=== PATIENT | female | born 1955 | race Caucasian/White ===

== ENCOUNTER 2017-07-03 11:49 | Emergency (ER) | payer OTHER ==
[~2017-07-03] VITALS: Ht 165.1 cm; Wt 99.8 kg
[2017-07-03 12:02] VITALS: Ht 165.1 cm; Wt 99.8 kg
[2017-07-03 16:07] VITALS: BP 129/57
== END 2017-07-03 16:24 | disposition home or self-care (01) ==
LOC: ED 11:49
DX: N39.0 Urinary tract infection, site not specified (principal); I10 Essential (primary) hypertension; E11.9 Type 2 diabetes mellitus without complications; E78.00 Pure hypercholesterolemia, unspecified

== ENCOUNTER 2018-07-30 14:33 | Emergency (ER) | payer SELFPAY ==
[~2018-07-30] VITALS: Ht 162.6 cm; Wt 107.0 kg
[2018-07-30 14:44] VITALS: BP 162/85; Ht 162.6 cm; Wt 107.0 kg
== END 2018-07-30 15:33 | disposition home or self-care (01) ==
LOC: ED 14:33
DX: J18.9 Pneumonia, unspecified organism (principal); M54.9 Dorsalgia, unspecified; I10 Essential (primary) hypertension; E11.9 Type 2 diabetes mellitus without complications; E78.00 Pure hypercholesterolemia, unspecified; Z98.890 Other specified postprocedural states

== ENCOUNTER 2019-05-05 11:09 | Emergency (ER) | payer OTHER ==
[~2019-05-05] VITALS: Ht 162.6 cm; Wt 108.4 kg
[2019-05-05 13:01] LABS: UA SPECIFIC GRAVITY >=1.030 (1.005-1.035); microscopic required? YES; urine erythrocyte 2+ (NEGATIVE)
[2019-05-05 15:50] VITALS: BP 176/66
== END 2019-05-05 15:50 | disposition home or self-care (01) ==
LOC: ED 11:09
PROVIDERS: Specialist
DX: N39.0 Urinary tract infection, site not specified (principal); I10 Essential (primary) hypertension; E11.9 Type 2 diabetes mellitus without complications; E78.00 Pure hypercholesterolemia, unspecified; Z98.890 Other specified postprocedural states
CPT/HCPCS: J0696; J1885